=== PATIENT | female | born 1980 | race African-American/Black ===

== ENCOUNTER 2016-10-10 18:13 | Emergency (ER) | payer BC, OTHER ==
--- NOTE | ~2016-10-10 | CR63 ---
[facility] A Service of [facility] & [facility] RADIOLOGY TEXT RESULTS PATIENT: CECE LEE LOCATION: SED : 84 UNIT #: [id number] AGE: [address]: KYLE PANTOJA SEX: F ORDER DR: [id number] [place] [id number] E MR#: [id number] Acc #: [id number] NAME: CECE LEE : 1980 SEX: F STUDY DATE/TIME: 10/10/2016 19:33 UNIT: SED ROOM: STUDY DESCRIPTION: CR Chest 2 View Attending Physician: Kyle Pantoja Ordering Physician: Kyle Pantoja Primary Care Physician: Primary Care Physician No MEDICAL IMAGING REPORT This report is preliminary unless electronic signature is present. EXAM PA and lateral chest HISTORY Chest pain for 3 days. FINDINGS 2 views of the chest demonstrate the cardiac size and pulmonary vascularity are normal. Mild chronic elevation of the anterior right hemidiaphragm. No infiltrates or effusions. IMPRESSION No acute findings. Dictated by... Nahid Hopkins M.D. THIS IS AN ELECTRONICALLY VERIFIED REPORT Nahid Hopkins M.D. at 10/11/2016 6:24 PM Barbara TD: 10/11/2016 01:56 JOB #: [id number] MEDICAL IMAGING REPORT Page 1 of 1
--- NOTE | ~2016-10-10 | EKG ---
PATIENT: CECE LEE UNIT #: [id number] Ventricular Rate: 60 BPM Atrial Rate: 60 BPM P-R Interval: 124 ms QRS Duration: 82 ms Q-T Interval: 446 ms QTC Calculation(Bezet): 446 ms P [place]: 37 degrees Calculated R [place]: -10 degrees Calculated T [place]: 5 degrees Diagnosis Line: Normal sinus rhythm Diagnosis Line: Nonspecific ST abnormality Diagnosis Line: Otherwise normal ECG Diagnosis Line: Diagnosis Line: Confirmed by AYESHA LE MD ([id number]) on 10/13/2016 Diagnosis Line: 4:36:27 PM INTERPRETING MD: MIMI ABRONE
[~2016-10-10 18:13] MED LIST: ADDERALL 10 MG10 M1 PO; ALDACTONE PO; AMITRYPTYLINE PO; AMOXICILLIN PO; ARIXTRA2.5 MG/0.5 INJ; ASPIR-TRIN325 MG PO; BENTYL20 MG PO; BUPROPION XL150 MG PO; CELEBREX PO; CYMBALTA PO; DIMETAPP120 ML PO; FLEXERIL PO; HYDROCODON-ACE1 EAC5 PO; HYDROCODON-ACE1 EACH PO; HYDROCODONE-APA1 T58 PO; IMITREX25 MG PO; LIORESAL10 MG PO; LORTAB 10-5001 EACH PO; LORTAB 7.5-5001 TAB PO; METFORMIN HCL500 M1 PO; MIRALAX17 GM PO; NAPROXEN PO; NO MEDICATIONS; NORFLEX100 M1 PO; PEPCID PO; PERCOCET10; PHENERGAN PO; PREDNISONE TAPER PO; PRILOSEC; ROBITUSSIN COU118 ML PO; SENNA PO; SKELAXIN PO; TOPAMAX; TOPAMAX PO; VICODIN 5/500 T1 TAB PO; VICODIN PO; VISTARIL PO; VITAMIN D50000 UNIT PO; VOLTAREN50 MG PO; YASMIN 28 TABLE1 TAB PO; YAZ 28 TABLET1 TAB PO; ZITHROMAX PO
[2016-10-10 19:39] LABS: BASOPHIL# 0.1 X10e3 (0-0.3); BASOPHIL% 0.7 % (0-2.5); EOSINOPHIL# 0.1 X10e3 (0-0.7); EOSINOPHIL% 1.1 % (0.0-7.0); HEMATOCRIT 40.1 % (35.0-45.0); LYMPHOCYTE# 4.7 X10e3 (1.0-3.5); LYMPHOCYTE% 43.5 % (17.0-45.0); MEAN CELL VOLUME 81.7 FL (83-96); MEAN CORPUSCULAR HEMOGLOBIN 26.4 PG (28-34); MEAN CORPUSCULAR HGB CONC 32.3 g/dL (30-36); MEAN PLATELET VOLUME 10.4 FL (6.5-11.5); MONOCYTE% 9.1 % (3.0-12.0); NEUTROPHIL# 4.9 X10e3 (1.5-7.1); NEUTROPHIL% 45.6 % (40-75); PLATELET COUNT 179 X10e3 (140-420); RED BLOOD COUNT 4.91 X10e (3.90-5.30); RED CELL DISTRIBUTION WIDTH 13.6 % (11.0-15.5); WHITE BLOOD COUNT 10.7 X10e3 (4.0-10.5)
[2016-10-10 19:46] LABS: ALBUMIN SERUM 4.1 g/dL (3.5-5.0); BILIRUBIN,TOTAL 0.7 mg/dL (0.2-2.0); BUN/CREATININE RATIO 13.33; CALCIUM SERUM 9.1 mg/dL (8.4-10.2); CREATININE SERUM 0.6 mg/dL (0.6-1.4); GLOM FILT RATE Estimated 137.8 mL/min (>60); POTASSIUM 4.2 mmol/L (3.5-5.1); PROTEIN TOTAL SERUM 7.2 g/dL (6.0-8.3)
[2016-10-10 19:48] LABS: DIFF IND NO
[2016-10-11 13:31] LABS: POC - CKMB 1.3 ng/mL (0.0-7.9); POC - MYOGLOBIN 52.2 ng/mL (0.0-169.0); POC - TROPONIN <0.05 ng/mL (<=0.05)
== END 2016-10-10 20:20 | disposition home or self-care (01) ==
LOC: SED 18:13
PROVIDERS: Nurse Practitioner
DX: G43.909 Migraine, unspecified, not intractable, without status migrainosus (principal); F32.9 Major depressive disorder, single episode, unspecified; Z90.49 Acquired absence of other specified parts of digestive tract; Z98.51 Tubal ligation status; Z88.0 Allergy status to penicillin; Z88.8 Allergy status to other drugs, medicaments and biological substances
CPT/HCPCS: 36415; 71020; 80053; 82553; 83874; 84484; 85025; 93005; 96374; 96375; 99284; J1200; J1885; J2405; J2765